=== PATIENT | female | born 1985 | race Caucasian/White ===

== ENCOUNTER 2017-04-24 00:02 | Emergency (ER) | payer SELFPAY ==
[2017-04-24] MEDS ORDERED: HYOSCYAMINE SULFATE ODT 0.125 MG TAB.SUBL SL ONE (00:56)
--- NOTE | 2017-04-24 01:04 | Emergency Department Record ---
History of Present Illness - General Chief Complaint: Abdominal Pain Stated Complaint: ABD/TAILBONE PAIN Time Seen by Provider: 04/24/17 00:05 Source: Patient Mode of Arrival: Ambulatory Limitations: No limitations - History of Present Illness Initial Comments: 31 yo female presents to ED with a CC of LLQ pain that began earlier this evening. Patient reports recent treatment for diverticulitis 2 weeks ago at [facility] [place], just finished her antibiotics. Patient denies fevers, chills, or recent illness. Patient also reports that she fell 4 days ago resulting in injury to her "tailbone", has been ambulating without difficulty following her fall. MD Complaint: Abdominal pain Onset/Timin -: Days(s) Location: LLQ Radiation: L flank Migration to: L Flank, LLQ Severity: Moderate Quality: Cramping Consistency: Intermittent Improves With: Other Worsens With: Bowel movement, Eating Context: Recent antibiotic use Associated Symptoms: Diarrhea, Nausea, Vomiting - Related Data Patient : No Home Medications Medication Instructions Recorded Confirmed Last Taken Albuterol Sulfate [Ventolin Hfa] 1 - 2 puff INH Q4H 04/24/17 04/24/17 04/20/17 Baclofen [Baclofen] 20 mg PO TID 04/24/17 04/24/17 04/23/17 Flunisolide [Aerospan] 1 puff INH DAILY 04/24/17 04/24/17 04/23/17 Indomethacin [Indomethacin] 75 mg PO BID 04/24/17 04/24/17 04/23/17 Levothyroxine Sodium [Synthroid] 0.05 mcg PO QAM 04/24/17 04/24/17 04/23/17 Lurasidone HCl [Latuda] 40 mg PO DAILY 04/24/17 04/24/17 04/23/17 Previous Rx's Medication Instructions Recorded Hyoscyamine Sulfate [Levsin-Sl] 0.125 mg SL Q8H PRN #20 tab.subl 04/24/17 Ondansetron [Zofran Odt] 4 mg PO Q6H PRN #20 tab.rapdis 04/24/17 Allergies Allergy/AdvReac Type Severity Reaction Status Date / Time ceftriaxone [From Rocephin] Allergy ANAPHYLAXIS Verified 04/24/17 00:23 cephalexin [From Keflex] Allergy ANAPHYLAXIS Verified 04/24/17 00:23 clindamycin Allergy ANAPHYLAXIS Verified 04/24/17 00:23 erythromycin base Allergy ANAPHYLAXIS Verified 04/24/17 00:23 Iodinated Contrast- Oral and Allergy ANAPHYLAXIS Verified 04/24/17 00:23 IV Dye iodine Allergy ANAPHYLAXIS Verified 04/24/17 00:23 methocarbamol [From Robaxin] Allergy ANAPHYLAXIS Verified 04/24/17 00:23 metoclopramide [From Reglan] Allergy ANAPHYLAXIS Verified 04/24/17 00:23 phenazopyridine Allergy ANAPHYLAXIS Verified 04/24/17 00:23 [From Pyridium] Sulfa (Sulfonamide Allergy ANAPHYLAXIS Verified 04/24/17 00:23 Antibiotics) Travel Screening - Travel/Exposure Within Last 30 Days Have you traveled within the last 30 days?: No Review of Systems Constitutional: Denies: Chills, Fever, Malaise, Night sweats Eyes: Denies: Eye discharge, Eye pain ENT: Denies: Congestion, Ear pain Respiratory: Denies: Cough, Dyspnea Cardiovascular: Denies: Chest pain, Dyspnea on exertion Endocrine: Denies: Fatigue, Heat or cold intolerance Gastrointestinal: Reports: Abdominal pain. Denies: Constipation, Nausea, Vomiting Genitourinary: Denies: Incontinence, Retention Musculoskeletal: Denies: Arthralgia, Back pain, Gout, Joint swelling Skin: Denies: Bruising, Change in color Neurological: Denies: Abnormal gait, Confusion, Headache, Seizure Psychiatric: Denies: Anxiety Hematological/Lymphatic: Denies: Anemia, Blood Clots Past Medical History - SOCIAL HISTORY Smoking Status: Never smoker Alcohol Use: Rare Drug Use: None - [employer] History : 3 Para: 3 A: 0 - RESPIRATORY Hx Respiratory Disorders: Yes Hx COPD: Yes - CARDIOVASCULAR Hx Cardio Disorders: Yes Comment:: Mitral valve prolapse - NEURO Hx Neuro Disorders: No - GI Hx GI Disorders: Yes Hx Diverticulitis: Yes Hx Reflux: Yes - Hx Genitourinary Disorders: No - ENDOCRINE Hx Endocrine Disorders: Yes Hx Thyroid Disease: Yes - MUSCULOSKELETAL Hx Musculoskeletal Disorders: No - PSYCH Hx Psych Problems: Yes Comment:: Bipolar - HEMATOLOGY/ONCOLOGY Hx Hematology/Oncology Disorders: Yes Hx Chemotherapy: Yes Hx Radiation Therapy: Yes Family Medical History Any Significant Family History?: No Family Hx Comment (NOT TO BE USED IN PLACE OF ITEMS BELOW): denies Physical Exam - General General Appearance: Alert, Oriented x3, Cooperative, No acute distress, Other ( Patient is smiling, on her cell phone during her examination and well appearing) Limitations: No limitations - Head Head exam: Atraumatic, Normocephalic, Normal inspection Head exam detail: negative: Abrasion, Contusion, Aiken's sign, General tenderness, Hematoma, Laceration - Eye Eye exam: Normal appearance. negative: Conjunctival injection, Periorbital swelling, Periorbital tenderness, Scleral icterus - ENT Ear exam: negative: Auricular hematoma, Auricular trauma Nasal Exam: negative: Active bleeding, Discharge, Dried blood Mouth exam: negative: Drooling, Laceration, Muffled voice, Tongue elevation - Neck Neck exam: Normal inspection. negative: Meningismus, Tenderness - Respiratory Respiratory exam: Normal lung sounds bilaterally. negative: Rales, Respiratory distress, Rhonchi, Stridor - Cardiovascular Cardiovascular Exam: Regular rate, Normal rhythm, Normal heart sounds - GI/Abdominal GI/Abdominal exam: Soft, Tenderness (Mild TTP to the LLQ on examination, no rebound, guarding, or peritoneal signs). negative: Rebound, Rigid - Rectal Rectal exam: Deferred - exam: Deferred - Extremities Extremities exam: Normal inspection. negative: Pedal edema, Tenderness - Back Back exam: Denies: CVA tenderness (R), CVA tenderness (L) - Neurological Neurological exam: Alert, Normal gait, Oriented X3 - Psychiatric Psychiatric exam: Normal affect, Normal mood - Skin Skin exam: Normal color. negative: Abrasion Type of lesion: negative: abrasion Course Vital Signs 04/24/17 00:27 Temperature 98 F Pulse Rate 78 Respiratory 20 Rate Blood Pressure 135/78 Pulse Ox 95 - Reevaluation(s) Reevaluation #1: 04/24/17 01:02 Patient was seen and examined, abdominal examination demonstrates mild TTP to the LLQ in a patient that is on her phone, smiling, and well appearing. At this time, will obtain patient's most recent CT imaging studies from [facility] , obtain laboratory studies, and treat the patient symptomatically. Examination is not consistent with abscess or perforation following treatment for diverticulitis. Will continue to observe pending her results. Reevaluation #2: 04/24/17 01:26 Labs reviewed and are grossly unremarkable for an acute process. [facility] contacted for recent CT imaging study, ER reports that the patient has no previous CT imaging studies on record however the patient was seen earlier today in the ED. Record is being faxed to the ED currently. Reevaluation #3: 04/24/17 01:35 Patient was updated on all results, and patient upon beings asked confirms that she was in the ED earlier today (14:00) for evaluation of her tailbone pain. Patient reports "they didn't do anything for me". On examination, the patient does have ecchymosis over the mid-buttock region with no bony tenderness present. Patient also reports improvement in her abdominal pain and nausea symptoms are improved. Patient is again sitting up, well appearing, legs crossed, and on her phone. Examination is not consistent with perforation or abscess based on my examination. As a result, the patient appears stable for discharge at this time with instructions for follow-up. Medical Decision Making - Lab Data Result diagrams: 04/24/17 01:05 04/24/17 01:05 Disposition Disposition: Discharge Clinical Impression: Abdominal pain Qualifiers: Abdominal location: left lower quadrant Qualified Code(s): R10.32 - Left lower quadrant pain Disposition: Home, Self-Care Condition: (2) Stable Instructions: Abdominal Pain (ED) Additional Instructions: Return to ED if your symptoms worsen or if you have any concerns. Zofran and Levsin as directed. Follow-up with your family doctor in 3-5 days as directed. Prescriptions: Hyoscyamine Sulfate [Levsin-Sl] 0.125 mg SL Q8H PRN #20 tab.subl PRN Reason: Abdominal Pain Ondansetron [Zofran Odt] 4 mg PO Q6H PRN #20 tab.rapdis PRN Reason: Nausea/Vomiting Forms: Patient Portal Access Time of Disposition: 01:43
[2017-04-24 01:12] LABS: BASO % 0.2 % (0-6); EOS % 5.3 % (0-6); GRAN % 59.5 % (47-80); HEMATOCRIT 45.5 % (35.0-47.0); LYMPH % 29.1 % (16-45); MEAN CELL VOLUME 88.3 fl (81-97); MEAN CORPUSCULAR HEMOGLOBIN 31.1 pg (27-33); MEAN CORPUSCULAR HGB CONC 35.2 g/dl (32-36); MEAN PLATELET VOLUME 10.2 fl (7.4-10.4); MONO % 5.9 % (0-9); PLATELET COUNT 289 K/uL (130-400); RED BLOOD COUNT 5.15 M/uL (3.80-5.40); RED CELL DISTRIBUTION WIDTH 13.6 % (11.5-14.5); WHITE BLOOD COUNT W/O DIFF 10.9 K/uL (4.2-12.2)
[2017-04-24 01:16] LABS: URINE APPEARANCE CLEAR; URINE BILIRUBIN NEGATIVE (NEGATIVE); URINE BLOOD NEGATIVE (NEGATIVE); URINE COLOR YELLOW; URINE GLUCOSE (UA) NEGATIVE (NEGATIVE); URINE KETONE NEGATIVE (NEGATIVE); URINE LEUKOCYTE ESTERASE NEGATIVE (NEGATIVE); URINE NITRITE NEGATIVE (NEGATIVE); URINE PROTEIN TRACE (NEGATIVE); URINE UROBILINOGEN 0.2 E.U./dL (0.20 - 1.00)
[2017-04-24 01:17] LABS: HCG,QUALITATIVE URINE NEGATIVE (NEGATIVE)
[2017-04-24 01:24] LABS: ALB/GLOB RATIO 1.4 (1.1-1.8); ALBUMIN 4.4 gm/dL (3.5-5.0); ALKALINE PHOSPHATASE 90 U/L (38-126); ALT/SGPT 84 U/L (9-52); ANION GAP 12.1 (7-16); AST/SGOT 53 U/L (14-36); BILIRUBIN,TOTAL 0.47 mg/dL (0.2-1.3); BLOOD UREA NITROGEN 9 mg/dL (7-17); CARBON DIOXIDE 22.9 mmol/L (22-30); CREATININE 0.6 mg/dL (0.52-1.04); EST GLOMERULAR FILTRATION RATE > 60 ml/min; GLUCOSE,RANDOM 140 mg/dL (70-110); LIPASE 760 U/L (23-300); TOTAL PROTEIN 7.5 gm/dL (6.3-8.2)
[2017-04-24] MEDS ORDERED: ONDANSETRON 4 MG ODT TABLET SL ONE (01:26)
== END 2017-04-24 01:48 | disposition home or self-care (01) ==
LOC: ER 00:02
DX: R10.32 Left lower quadrant pain (principal); R11.2 Nausea with vomiting, unspecified; R19.7 Diarrhea, unspecified; Z91.81 History of falling
CPT/HCPCS: 99283 ×2; 83690; 85025; 80053; 81003; 81025; J1980